=== PATIENT | female | born 1965 | race Caucasian/White ===

== ENCOUNTER 2019-10-04 14:44 | Outpatient (CLI) | payer OTHER, SELFPAY ==
--- NOTE | ~2019-10-04 | XR_ITS ---
EXAMINATION: XR lumbar spine min 4V DATE: 10/04/2019 15:18 INDICATION: Degenerative disc disease TECHNIQUE: Anteroposterior, lateral, and bilateral oblique views of the lumbar spine, and cone-down l ateral view of the lumbosacral junction were obtained. COMPARISON: None. FINDINGS: The vertebral body heights and alignment are normal. There is mild loss of intervertebral d isc space height at L5-S1. There is no fracture. Mild facet osteoarthritis is noted in the lower lumb ar spine. The bowel gas pattern is normal. Small degenerative osteophytes project from the anterior e ndplates of multiple vertebral bodies. IMPRESSION: 1. Mild lumbar spondylosis without acute findings. Reviewed, dictated and finalized at location F.
--- NOTE | ~2019-10-04 | XR_ITS ---
EXAMINATION:XR cervical spine min 6V DATE: 10/04/2019 15:18 INDICATION: Cervical degenerative disc disease with bone spurs and pain going to the right shoulder. TECHNIQUE: AP, lateral in neutral, flexion and extension, lateral swimmers and odontoid views of the cervical spine are provided. COMPARISON: None FINDINGS: 1 mm retrolisthesis C5 on C6 which is unchanged with flexion and extension. Odontoid is intact. Norm al atlantoaxial interval. Vertebral body heights are normal. Mild disc height loss at C5-C6. Small en dplate osteophytes with preserved disc heights at C3-C4, C4-C5 and C6-C7. Moderate bilateral uncovert ebral osteoarthritis at C5-C6 along with posterior endplate osteophytes, bladder resulting in mild ce ntral canal stenosis. Moderate to severe facet osteoarthritis at C2-C3 and C3-C4. Mild facet osteoart hritis in the more caudal cervical spine. Prevertebral soft tissues are normal. Visualized apices of lungs are clear. IMPRESSION: 1. Mild to moderate cervical spondylosis including 1 mm retrolisthesis C5 on C6 which is unchanged wi th flexion and extension. Reviewed, dictated and finalized at location A. IMPRESSION: 1. Mild to moderate cervical spondylosis including 1 mm retrolisthesis C5 on C6 which is unchanged with flexion and extension.
== END 2019-10-04 14:45 | disposition home or self-care (01) ==
LOC: ANHIMG 14:47
PROVIDERS: PCP Family Medicine; Visit Provider Chiropractor
DX: M51.36 Other intervertebral disc degeneration, lumbar region (principal); M47.896 Other spondylosis, lumbar region; M47.892 Other spondylosis, cervical region
CPT/HCPCS: 72052; 72110

== ENCOUNTER → 2022-03-21 13:44 | Outpatient (CLI) | payer OTHER, SELFPAY ==
--- NOTE | ~2022-03-21 | MM_ITS ---
EXAMINATION: MM screening slick BI w easton HISTORY: Screening mammogram TECHNIQUE: Craniocaudal and mediolateral oblique 3-D tomosynthesis images were obtained and synthetic 2-D images were generated. Bilateral rotated lateral CC views. CAD analysis was submitted and interp reted. COMPARISON: 11/23/2014 right diagnostic mammogram and limited right breast ultrasound examination 02/2014 diagnostic right mammogram and right breast ultrasound examination 02/14/2014 bilateral screening mammogram examination BREAST PARENCHYMAL COMPOSITION: There are scattered areas of fibroglandular density. FINDINGS: There is no evidence of suspicious mass, calcification, or architectural distortion to sugg est malignancy in either breast. There has been no suspicious interval change. IMPRESSION: 1. No mammographic evidence of malignancy. 2. Recommend routine screening mammography in one year. BI-RADS Category 1: Negative Reviewed, dictated and finalized at location A. AL DEVELOPER
== END ==
PROVIDERS: PCP Family Medicine; Visit Provider Family Medicine
DX: Z12.31 Encounter for screening mammogram for malignant neoplasm of breast (principal)
CPT/HCPCS: 77063; 77067

== ENCOUNTER 2022-04-30 08:11 | Outpatient (CLI) | payer OTHER, SELFPAY ==
[2022-04-30 18:06] LABS: Alanine Aminotransferase 24 U/L (6-35); Albumin Level 4.7 g/dL (3.5-5.1); Alkaline Phosphatase 68 U/L (38-126); Anion Gap 7 mmol/L (8-16); Aspartate Amino Transferase 40 U/L (14-36); Bilirubin,Total 0.6 mg/dL (0.2-1.3); Blood Urea Nitrogen 17 mg/dL (7-17); Calcium 9.2 mg/dL (8.4-10.2); Carbon Dioxide 31 mmol/L (22-30); Chloride 102 mmol/L (98-107); Cholesterol 226 mg/dL (0-200); Estimated Glomerular Filt Rate > 60; Glucose 66 mg/dL (65-110); HDL Direct 59 mg/dL; Potassium 4.2 mmol/L (3.4-5.0); Sodium 140 mmol/L (137-145); Triglycerides 75 mg/dL (<150)
[2022-04-30 18:18] LABS: LDL Cholesterol Direct 118 mg/dL
[2022-04-30 19:01] LABS: Basophils Absolute Auto 0.1 K/mm3 (0.0-0.1); Basophils Percent Auto 1.2 % (0.2-1.2); Eosinophils Absolute Auto 0.2 K/mm3 (0-0.3); Hematocrit 44.4 % (37.0-47.0); Hemoglobin 14.5 g/dL (12.0-15.0); Immature Granulocyte Absolute 0.01 K/mm3 (0.00-0.031); Immature Granulocyte Percent A 0.2 % (0-0.5); Lymphocytes Absolute Auto 3.01 K/mm3 (0.9-3.2); Lymphocytes Percent Auto 50.1 % (18.3-44.2); Mean Corpuscular HGB Conc 32.7 g/dl (32-36); Mean Corpuscular Hemoglobin 32.5 pg (26-34); Mean Corpuscular Volume 99.6 fl (80-100); Mean Platelet Volume 9.4 fl (7.4-10.4); Monocytes Absolute Auto 0.4 K/mm3 (0.1-0.6); Monocytes Percent Auto 7.3 % (2.6-8.5); Neutrophils Absolute Auto 2.3 K/mm3 (1.3-6.7); Neutrophils Percent Auto 38.2 % (45.5-73.1); Platelet Count Result 291 k/mm3 (150-375); Red Blood Count 4.46 M/mm3 (4.2-5.4); Red Cell Distribution Width 12.3 % (11.5-14.5)
[2022-04-30 19:39] LABS: Free T4 Free Thyroxine 1.07 ng/mL (0.78-2.19); Vitamin D 25 Hydroxy 83.7 ng/mL
[2022-04-30 21:03] LABS: Hemoglobin A1C 5.1 % (<5.7)
== END 2022-04-30 08:12 | disposition home or self-care (01) ==
LOC: ANHGOSHLAB 08:13
PROVIDERS: PCP Internal Medicine; Visit Provider Family Medicine
DX: E55.9 Vitamin D deficiency, unspecified (principal); R53.83 Other fatigue; R73.9 Hyperglycemia, unspecified; Z13.220 Encounter for screening for lipoid disorders
CPT/HCPCS: 36415; 80053; 80061; 82306; 83036; 84439; 84443; 85025

== ENCOUNTER 2024-03-21 13:01 | Emergency (ER) | payer OTHER, SELFPAY ==
[2024-03-21 13:13] VITALS: BP 117/87; PULSE 95; RESP 16; TEMP 37.1; O2SAT 100
--- NOTE | 2024-03-21 13:29 | ED_ITS ---
HPI - URI/Sore Throat General Chief Complaint: Upper Respiratory Infection Stated Complaint: Sinus Infection Symptoms Time Seen by Provider: 03/21/24 13:21 Source: patient and RN notes reviewed Mode of arrival: ambulatory Limitations: no limitations History of Present Illness HPI Narrative: Patient presents today with a 2 week history of sinus pressure, frontal headache, nasal congestion, fatigue, mild cough. She has tried Mucinex with some mild relief. No recent antibiotic use. No history of sinus surgeries. Related Data Allergies Allergy/AdvReac Type Severity Reaction Status Date / Time No Known Allergies Allergy Verified 03/21/24 13:19 Review of Systems Review of Systems: CONSTITUTIONAL: Denies body aches, fever, chills, or sweats.+ fatigue EYES: Denies visual changes, redness, or discharge. ENT: Denies rhinorrhea, sore throat, or otalgia.+ nasal congestion, sinus pressure CARDIOVASCULAR: Denies chest pain, palpitations, or edema. RESPIRATORY: Denies dyspnea.+ mild cough GASTROINTESTINAL: Denies abdominal pain, nausea, vomiting, or diarrhea. GENITOURINARY: Denies dysuria or hematuria. SKIN: Denies rash, itching, or wounds. MUSCULOSKELETAL: Denies back pain, joint pain, or myalgia. NEUROLOGIC: Denies numbness, tingling, or weakness.+ frontal headache PSYCH: Denies depression or anxiety. [facility] Past Medical History Medical History Anxiety disorder in conditions classified elsewhere Cervical radiculopathy Cervical radiculopathy, acute Post-nasal drip Screening for lipoid disorders Screening for metabolic disorder Syncope and collapse Vertigo Vitamin D deficiency Family History Family History Son No problems noted. Social History Social History Smoking status: Never smoker Alcohol intake: never Lack of Transportation: No Lack of Food: Never True Current Housing: I Have Housing Concerned About Future Housing: No Difficulty Paying Gas/Electric Bills: No Difficulty Paying for Meds: No Currently Unemployed: No Education: Master's Degree or Higher Comments At time of signature, I have reviewed and agree with nursing past medical, surgical, social and family history unless otherwise noted. Please see nursing chart for further information. There is no relevant family history pertinent to the presenting complaint Exam Narrative: GENERAL: Well-appearing, well-nourished, and in no acute distress. HEAD: Normocephalic, atraumatic. EYES: EOMI. No redness or drainage. Conjunctivae normal. ENT: Mucous membranes pink and moist. Nares mildly congested. Bilateral nasal turbinates are erythematous and edematous.. No rhinorrhea. TMs normal bilaterally. Throat normal. Uvula midline. Bilateral frontal and maxillary sinus tenderness to palpation. NECK: Normal AROM. Supple. No lymphadenopathy. CHEST: No respiratory distress. Clear to auscultation. HEART: Regular rate and rhythm. No murmur appreciated. EXTREMITIES: Normal range of motion. No edema. SKIN: Warm, dry, no rash. Capillary refill normal. Normal skin turgor. NEURO: No focal deficits. Alert and oriented x3. Gait steady. PSYCH: Normal affect. No signs of depression or anxiety. Course Course Level of Care: Express Care Visit Vital Signs Vital signs: Vital Signs Temperature 98.8 F 03/21/24 13:13 Pulse Rate 95 03/21/24 13:13 Respiratory Rate 16 03/21/24 13:13 Blood Pressure 117/87 03/21/24 13:13 Pulse Oximetry 100 03/21/24 13:13 Oxygen Delivery Room Air 03/21/24 13:13 Temperature 98.8 F 03/21/24 13:13 Pulse Rate 95 03/21/24 13:13 Respiratory Rate 16 03/21/24 13:13 Blood Pressure 117/87 03/21/24 13:13 Pulse Oximetry 100 03/21/24 13:13 Oxygen Delivery Room Air 03/21/24 13:13 Reviewed MDM - URI/Sore Throat MDM Narrative Medical decision making narrative: Patient will be treated with Augmentin for bacterial sinusitis. Discussed [id number] medication as well. Anticipatory guidance given. Differential Diagnosis Differential diagnosis: Likely upper respiratory infection, otitis media, sinusitis and viral infection Critical Care Time Critical Care Time Critical Care Time: No Discharge Plan Discharge Clinical Impression: Sinusitis Qualifiers: Sinusitis location: unspecified location Chronicity: acute Recurrence: non- recurrent Qualified Code(s): J01.90 - Acute sinusitis, unspecified Patient Disposition: Home, Self-Care Condition: Stable Instructions: Antibiotic Form, Sinusitis (ED) Additional Instructions: Please take the Augmentin as prescribed until gone. You may want to consider a decongestant such as Sudafed, intranasal steroid such as Flonase to help with your symptoms. Follow-up with your PCP in 3 days if symptoms are not improving. Your blood pressure was elevated above 120/80 today at Urgent Care. This puts you above the threshold for follow up. Please schedule a followup visit with your personal physician as soon as possible, for further evaluation and treatment. Even blood pressure exceeding 120/80 may indicate pre-hypertension. Prescriptions: New amoxicillin-pot clavulanate 875-125 mg tablet 1 tablet PO Q12H 7 Days Qty: 14 0RF No Action sertraline 50 mg tablet 50 mg PO DAILY Qty: 90 1RF Follow-up/Referrals: Herlinda Atkinson, PROJECT CONSTRUCTION ASSISTANT MANAGER-C [Primary Care Provider] - Time of Disposition: 13:33
== END 2024-03-21 13:35 | disposition home or self-care (01) ==
PROVIDERS: Emergency Provider Nurse Practitioner; PCP Clinical Nurse Specialist
DX: J01.90 Acute sinusitis, unspecified (principal)
CPT/HCPCS: 99213; G0463

== ENCOUNTER 2024-07-04 13:44 | Emergency (ER) | payer OTHER, SELFPAY ==
--- NOTE | ~2024-07-04 | XR_ITS ---
XR chest 2V Ordering provider: Sara Bajwa NP History: 59 years Female with . Cough . Comparison: September 10, 2018 FINDINGS: MEDIASTINUM: The cardiac silhouette is not enlarged. LUNGS: No infiltrates, effusions or pneumothorax. OTHER: No free air under the diaphragm. IMPRESSION: No acute cardiopulmonary pathology. Reviewed, dictated and finalized at location A.
[2024-07-04 13:54] VITALS: BP 114/70; PULSE 78; RESP 16; TEMP 36.8; O2SAT 99
--- NOTE | 2024-07-04 13:55 | ED_ITS ---
HPI - URI/Sore Throat General Chief Complaint: Upper Respiratory Infection Stated Complaint: Sinus Infection Symptoms Time Seen by Provider: 07/04/24 14:00 Source: patient and RN notes reviewed Mode of arrival: ambulatory Limitations: no limitations History of Present Illness HPI Narrative: 59-year-old female presents with concern for 2 week history of cough. She reports she has had sinus congestion and drainage, reports that drainage has pretty much stopped. She reports she has also been having nausea for almost 2 weeks. She denies vomiting or diarrhea. Reports normal bowel movements. She denies dysuria, frequency, urgency. She denies fevers MD elicited complaint: cough Related Data Allergies Allergy/AdvReac Type Severity Reaction Status Date / Time No Known Allergies Allergy Verified 07/04/24 13:47 Review of Systems Review of Systems: CONSTITUTIONAL: Denies malaise, chills, sweats, or fever. EYES: Denies visual changes, redness, or discharge. ENT: Reports rhinorrhea, congestion. Denies sinus pain, otalgia and sore throat. CARDIOVASCULAR: Denies chest pain, palpitations, or edema. RESPIRATORY: Reports cough. Denies dyspnea. GASTROINTESTINAL: Denies abdominal pain, vomiting, diarrhea. Reports nausea SKIN: Denies rash or itching. MUSCULOSKELETAL: Denies myalgia. NEUROLOGIC: Denies headache. All systems reviewed & are unremarkable except as noted in HPI and below PMFSH Past Medical History Medical History Anxiety disorder in conditions classified elsewhere Cervical radiculopathy Cervical radiculopathy, acute Post-nasal drip Screening for lipoid disorders Screening for metabolic disorder Syncope and collapse Vertigo Vitamin D deficiency Family History Family History Son No problems noted. Social History Social History Smoking status: Never smoker Alcohol intake: never Lack of Transportation: No Lack of Food: Never True Current Housing: I Have Housing Concerned About Future Housing: No Difficulty Paying Gas/Electric Bills: No Difficulty Paying for Meds: No Currently Unemployed: No Education: Master's Degree or Higher Comments At time of signature, agree with nursing past medical, surgical, social and family history. There is no relevant family history pertinent to the presenting complaint Exam Narrative: GENERAL: Well-appearing, well-nourished, and in no acute distress. HEAD: Normocephalic EYES: PERRLA, conjunctivae clear ENT: Nares clear. Mucous membranes moist. TM pearly schmid with sharp light reflex bilaterally; no tragal tenderness. Oropharynx not erythematous without lesions. Tonsils not enlarged and without exudate, no drooling, no hoarseness, no trismus, uvula midline. NECK: Supple. No lymphadenopathy CHEST: Clear to auscultation, breath sounds equal. No wheezing, rhonchi, rales, or stridor. No respiratory distress, speaks in full sentences. HEART: Regular rate and rhythm. No murmur heard. ABD: Soft, flat, nondistended, normal bowel sounds all 4 quadrants SKIN: Warm, dry, no rash. NEURO: Alert and oriented x3. PSYCH: Normal mood and affect Course Course Emergency Course: Patient is aware of diagnosis, understands and agrees to treatment plan. Anticipatory guidance given. Patient agrees to follow-up as directed and is aware of reasons to seek care at the emergency department. Portions of this record may have been created with voice recognition software Level of Care: Express Care Visit Vital Signs Vital signs: Vital Signs Temperature 98.2 F 07/04/24 13:54 Pulse Rate 78 07/04/24 13:54 Respiratory Rate 16 07/04/24 13:54 Blood Pressure 114/70 07/04/24 13:54 Pulse Oximetry 99 07/04/24 13:54 Temperature 98.2 F 07/04/24 13:54 Pulse Rate 78 07/04/24 13:54 Respiratory Rate 16 07/04/24 13:54 Blood Pressure 114/70 07/04/24 13:54 Pulse Oximetry 99 07/04/24 13:54 Reviewed. MDM - URI/Sore Throat MDM Narrative Medical decision making narrative: Differential diagnosis considered: Schreiber virus, strep pharyngitis, allergic rhinitis, upper respiratory tract infection, sinusitis, rhinosinusitis, nasopharyngitis. viral pharyngitis, otitis media, otitis externa, pneumonia, bronchitis, viral cough syndrome, viral syndrome, and influenza. Exam findings show no acute concerns or changes; patient is non-toxic appearing and is in no distress. Patient is appropriate for outpatient treatment and follow-up. Lab Data Attestation: I reviewed the patient's lab results. Imaging Data My impression: Images reviewed, interpreted by radiologist, agree, see report. Radiologist's impression: XR chest 2V Ordering provider: Sara Bajwa NP History: 59 years Female with . Cough . Comparison: September 10, 2018 FINDINGS: MEDIASTINUM: The cardiac silhouette is not enlarged. LUNGS: No infiltrates, effusions or pneumothorax. OTHER: No free air under the diaphragm. IMPRESSION: No acute cardiopulmonary pathology. Critical Care Time Critical Care Time Critical Care Time: No Discharge Plan Discharge Clinical Impression: Bronchitis Patient Disposition: Home, Self-Care Condition: Stable Instructions: Acute Bronchitis (ED) Additional Instructions: Take medications as prescribed Recommend antihistamine such as Benadryl at night time and Zyrtec or Nela during the day Cough syrup may cause drowsiness; avoid driving or take it at night time. Also, recommend symptomatic treatment includes: rest, fluids, and increase humidity of the air at home. Recommend Acetaminophen as directed on the bottle to reduce fever, pain, headache. Avoid smoking/second-hand smoke. Please schedule a follow-up visit with your personal physician for further evaluation and treatment within 3-5days. Including recheck and discussion of your blood pressure. If your symptoms persist, change or worsen significantly before you can contact your personal physician then please, without delay, go to the emergency department for further evaluation. Patient Language: Citizen Of [place] Prescriptions: New promethazine-DM 6.25-15 mg/5 mL syrup 5 ml PO Q4-6H PRN (Reason: cough) Qty: 120 0RF methylprednisolone [Medrol (Felipe)] 4 mg tablets,dose pack See Rx Instructions .ROUTE .COMPLEX Qty: 21 0RF Rx Instructions: orally per package directions No Action sertraline 50 mg tablet 50 mg PO DAILY Qty: 90 1RF Follow-up/Referrals: PHYSICIAN,MANAGER GROUP [Primary Care Provider] - Stand Alone Forms: Work/School Release IP Time of Disposition: 14:45
== END 2024-07-04 14:51 | disposition home or self-care (01) ==
PROVIDERS: Emergency Provider Nurse Practitioner
DX: J40 Bronchitis, not specified as acute or chronic (principal); F41.9 Anxiety disorder, unspecified
CPT/HCPCS: 71046; 99213; G0463

== ENCOUNTER 2024-10-31 08:10 | Outpatient (CLI) | payer OTHER, SELFPAY ==
--- OUTSIDE RECORDS SUMMARY | 2024-10-31 08:14 | XMS_ITS | Data Portability ---
Author Organization [facility] Management, [facility] Address [address] [address] Care Team Providers Care Channeler Outsole Name Role Phone JENNIFER WU Primary Care Provider Unavailabl e Assessment No assessment recorded. Plan of Treatment Reminders Order Date Submit Date Provider Last Modified By Organization Details Last Modified Time Details Appointments None recorded. Lab None recorded. Referral pain management referral - C-spine pain with Rt sided radiculopa thy into hand 2019 AMANDA Coffman MD, [address], [facility] , [place], [address], 0 10:55:23 Procedures None recorded. Surgeries None recorded. Imaging XR, cervical spine, 2 or 3 view - Rm 7, please get T1-T3 as well. 2019 020 [email or web address] Not available 0 08:45:03 XR, lumbar spine - Rm 7 2019 020 Not available 0 08:45:03 Medication Orders meloxicam 15 mg tablet 2019 020 [email or web address] [id number], [address] [place], [address], 0 08:45:03 Patient TargetsNo targets recorded. Patient InstructionsNo instructions recorded. Reason for Referral Pain Management Referral for Neck pain Epidula steroid Cervical spine C-spine pain with Rt sided radiculopathy into hand Referring Physician: Belen Gleason, Computer Graphic Artist, Encounter Date: 11/03/2019 Results Created Date Observation Date Name Description Value Unit Range Abnormal Flag Note LastModifiedBy Organization Detail LastModifiedTime 11/01/19 20 MRI, cervi courtney spine , w/o contr ast No observ ation record ed. [email or web address] Not Available 2019 10:53:49 Result Notes None recorded. Problems No Known Problems Procedures Surgical History Date Name Laterality Status Provider Name and Address Organization Details Recorded Time 0 Generic Procedure completed TONNY CANNON [address] [address], [place], [address], [employer] 11/07/2019 16:52:01 Imaging Results None recorded. Procedure Notes None recorded. Medical Equipment None Reported. Allergies No known drug allergies Medications Name Sig Start Date Stop Date Status Note LastModified by Organization Details LastModified Time prednisone 10 mg tablet active Not Available Not Available Not Available hydrocodone 5 mg-acetaminophen 325 mg tablet active Not Available Not Availabl e Not Available meloxicam 15 mg tablet TAKE 1 TABLET( S) EVERY OTHER DAY BY ORAL ROUTE WITH MEALS. 2019 active Not Available Not Available Not Avai lable diazepam 2 mg tablet active Not Available Not Available Not Available paroxetine 30 mg tablet active Not Available Not Available Not Available nitrofurantoin monohydrate/macr ocrystals 100 mg capsule active Not Available Not Available Not Available Vitals Date Recorded Body height Body mass index (BMI) Body weight Heart rate Respiratory rate Body temperature Systolic And Diastolic Provider Name and Address Organization Details Last Updated DateTime 0 175.26 cm 22.2 kg/m2 71575.8 6 g 81 /min 16 /min 98.5 [degF] 102/69 mm[Hg] Kosta Castro [employer] 0 10:05:10 Social History None recorded. Functional Status None recorded. Mental Status None recorded. Family History Relationship Description Onset Age of this Age Resolved Age Notes LastModified by Organization Details LastModified Time Brother Substance abuse [email or web address] Not available 2019 10:17:20 Father Malignant neoplastic disease [email or web address] Not available 2019 10:17:36 Medical History No medical history recorded. Gynecological HistoryNo gynecological history recorded. Obstetrics History GPAL:G 0 P 0 0 0 0 Past Encounters Encounter ID Performer Location Encounter Start Date Encounter Closed Date Diagnosis/Indication Diagnosis SNOMED-CT Code Diagnosis ICD10 Code Diagnosis Note [id number] TONNY CANNON [facility] [address] [place] [id number] 11/03/2019 10:02:16 11/09/2019 11:52:21 Neck pain 59323528 M54.2 Low back pain 323797664 M54.5 Degenerati on of cervical intervertebral disc 06729366 M50.30 Degenerati on of lumbar intervertebral disc 61303572 M51.36 At today's office visit the patient's diagnosis and treatment options were discussed in great detail. The patient was provided with informatio n to make an informativ e decision on the next steps for treatment. The patient has tried several conservati ve measures including but not limited to PT, rest, ice, and NSAIDs with no beneficial relief. Given the imaging results and the duration of the patient's symptoms I would recommend BMAC with fat as they are an excellent candidate. We discussed the need for PRP at [facility] the 12-week юлия. The risk and benefits were discussed with the patient as well as functional and pain improvemen t outcomes. The procedure was discussed in detail as well as the recovery period. We discussed screening with R3 and its importance . We also discussed obtaining labs to ensure the patient is optimized for maximal results. I also discussed other conservati ve options. The patients case and treatment plan were reviewed in detail with Dr. Phan. PLAN: [facility]/fat to C5-6, C6-7 right greater than left levator and trap. All questions were answered, the patient understood the treatment plan. Greater than 45 minutes face-to-fa ce visit with more than 50% of my time spent counseling the patient about their diagnosis including pathophysi ology and treatment options. Health Concerns Section Related Observation LastModified by Organization Detai ls LastModified Time None Recorded Concern Status LastModified by Organization Details LastModified Time None Recorded Advance Directives Directive None Recorded Payers Insurance Date Sequence Insurance Name Policy Number Policy Kulkarni Covered Member ID Kulkarni Member ID Guarantor Name 11/01/2019 1 *SELF PAY* Muriel Miranda 02/09/2020 1 [employer] - DOS PRIOR TO 20 - [facility] B[employer]EF[facility] Caridad Miranda [id number] Caridad Miranda Notes Date Note Type Note Provider Name and Address Organization Details Recorded Time 11/03/2019 text/html 54-year-old dieter echols who comes in today complaining of pain and discomfort in her neck and upper back is been ongoing since September 10, 2019. She had an accident while skiing in July of this year and believes that precipitated her pain and discomfort. She has had no change in her pain. She describes her pain as stabbing, shooting throbbing. She rates her pain as a 5/10. She has been placed on a nonsteroidal anti-inflammatory to help with her pain and discomfort. She states the pain is worse at night. The pain does improve with ibuprofen and physical therapy. She has tried rest, ice, compression, physical therapy, career technical counselor, nonsteroidal anti-inflammatories , massage and pain medications. She has had and cortisone injection back in September of 2028 which did help her somewhat. She is here today investigating whether she can have another epidural steroid injection into her neck. TONNY CANNON [address], [place], [address], [facility], [facility] 11/07/2019 16:52:06 OBGyn Episode No OBEpisode recorded.
[2024-10-31 17:36] LABS: Hematocrit 46.9 % (37.0-47.0); Hemoglobin 15.7 g/dL (12.0-15.0); Immature Granulocyte Percent A 0.2 % (0-0.5); Lymphocytes Absolute Auto 2.27 K/mm3 (0.9-3.2); Mean Corpuscular HGB Conc 33.5 g/dl (32-36); Mean Corpuscular Hemoglobin 31.8 pg (26-34); Mean Corpuscular Volume 94.9 fl (80-100); Nucleated Red Blood Cells Absolute Auto 0.000 K/mm3 (0.0-0.012); Nucleated Red Blood Cells Perc 0.0 % (0.0-0.2); Platelet Count Result 284 k/mm3 (150-375); Red Blood Count 4.94 M/mm3 (4.2-5.4); White Blood Count 4.9 K/mm3 (4.5-10.0)
[2024-10-31 17:37] LABS: Alanine Aminotransferase 24 U/L (6-35); Albumin Level 4.7 g/dL (3.5-5.1); Alkaline Phosphatase 60 U/L (38-126); Anion Gap 7 mmol/L (4-12); Aspartate Amino Transferase 34 U/L (14-36); Bilirubin,Total 0.6 mg/dL (0.2-1.3); Blood Urea Nitrogen 16 mg/dL (7-17); Calcium 9.8 mg/dL (8.4-10.2); Carbon Dioxide 30 mmol/L (22-30); Chloride 103 mmol/L (98-107); Cholesterol 243 mg/dL (0-200); Estimated Glomerular Filt Rate 60; Glucose 95 mg/dL (65-110); HDL Direct 71 mg/dL; Potassium 4.1 mmol/L (3.4-5.0); Sodium 140 mmol/L (137-145); Total Protein 8.0 g/dL (6.3-8.2); Triglycerides 77 mg/dL (<150)
[2024-10-31 18:13] LABS: Thyroid Stimulating Hormone 1.690 uIU/mL (0.465-4.680)
[2024-10-31 20:48] LABS: Free T3 3.37 pg/mL (2.45-5.93); Free T4 Free Thyroxine 1.12 ng/dL (0.78-2.19)
[2024-11-01 11:08] LABS: FSH 76.1 mIU/mL (25.8-134.8)
== END 2024-10-31 08:11 | disposition home or self-care (01) ==
LOC: ANHGOSHLAB 08:11
PROVIDERS: PCP Internal Medicine; Visit Provider Clinical Nurse Specialist
DX: Z13.228 Encounter for screening for other metabolic disorders (principal); Z13.220 Encounter for screening for lipoid disorders; E55.9 Vitamin D deficiency, unspecified; F41.9 Anxiety disorder, unspecified; F32.A Depression, unspecified; R55 Syncope and collapse; N95.1 Menopausal and female climacteric states
CPT/HCPCS: 36415; 80053; 80061; 82306; 83001; 84144; 84146; 84439; 84443; 84481; 85025

== ENCOUNTER 2025-02-08 10:16 | Outpatient (CLI) | payer OTHER, SELFPAY ==
--- NOTE | ~2025-02-08 | MM_ITS ---
EXAMINATION: MM screening slick BI w easton HISTORY: Screening TECHNIQUE: Craniocaudal and mediolateral oblique 3-D tomosynthesis images were obtained and synthetic 2-D images were generated. CAD analysis was submitted and interpreted. COMPARISON: Comparison to multiple prior studies sequentially, with oldest reviewed study dated , 11/26/2009 BREAST PARENCHYMAL COMPOSITION: There are scattered areas of fibroglandular density. FINDINGS: There is no evidence of suspicious mass, calcification, or architectural distortion to suggest malignancy in either breast. IMPRESSION: 1. No mammographic evidence of malignancy. 2. Recommend routine screening mammography in one year. BI-RADS Category 1: Negative Reviewed, dictated and finalized at location B.
== END 2025-02-08 10:17 | disposition home or self-care (01) ==
LOC: CHSIMG 10:17
PROVIDERS: PCP Internal Medicine; Visit Provider Clinical Nurse Specialist
DX: Z12.31 Encounter for screening mammogram for malignant neoplasm of breast (principal)
CPT/HCPCS: 77063; 77067